=== PATIENT | female | born 1965 | race Two or more races ===

== ENCOUNTER 2023-10-04 11:39 | Emergency (ER) | payer OTHER ==
[~2023-10-04] VITALS: Ht 154.9 cm; Wt 93.0 kg
[2023-10-04 11:46] VITALS: BP 137/88; TEMP 98.1
[2023-10-04 14:22] VITALS: O2SAT 99
== END 2023-10-04 14:23 | disposition home or self-care (01) ==
LOC: ER 11:51 → EDSEX 11:51 → ER 14:23
DX: J06.9 Acute upper respiratory infection, unspecified (principal); Z20.822 Contact with and (suspected) exposure to COVID-19
CPT/HCPCS: 99284; 71045; 87426; 87804 ×2; 87880; C9803; 86403-TC

== ENCOUNTER 2024-01-11 13:38 | Emergency (ER) | payer MEDICAID, OTHER ==
[~2024-01-11] VITALS: Ht 152.4 cm; Wt 95.3 kg
[2024-01-11 13:59] VITALS: BP 160/106; TEMP 98
[2024-01-11] MEDS ORDERED: CEPH500C2 PO (14:17)
[2024-01-11 14:20] VITALS: O2SAT 96
== END 2024-01-11 14:21 | disposition home or self-care (01) ==
LOC: ER 13:42
DX: J34.0 Abscess, furuncle and carbuncle of nose (principal)